=== PATIENT | male | born 1980 | race Caucasian/White ===

== ENCOUNTER 2017-05-09 23:04 | Inpatient (IN) | payer OTHER ==
[~2017-05-09] VITALS: Ht 182.9 cm; Wt 74.0 kg
[2017-05-10 00:55] LABS: MEAN CORPUSCULAR HEMOGLOBIN 34.7 pg (27.0-33.0); MEAN CORPUSCULAR HGB CONC 35.4 g/dl (32.0-36.5); MEAN CORPUSCULAR VOLUME 97.9 fl (80.0-96.0); PLATELET COUNT, AUTOMATED 167 10^3/uL (150-450); RED CELL DISTRIBUTION WIDTH 14.2 % (11.5-14.5); WHITE BLOOD COUNT 5.2 10^3/uL (4.0-10.0)
[2017-05-10] MEDS ORDERED: NICOTINE 21MG/24HR 1 EA TRANSDERMAL TD ONE ×2 (01:15→16:15)
[2017-05-10 01:16] LABS: METHADONE URINE NEGATIVE (NEGATIVE)
[2017-05-10 01:25] LABS: ALBUMIN 3.7 GM/DL (3.2-5.2); ALBUMIN/GLOBULIN RATIO 0.97 (1.00-1.93); ALKALINE PHOSPHATASE 115 U/L (45-117); ALT/SGPT 104 U/L (12-78); ANION GAP 9 MEQ/L (8-16); AST/SGOT 136 U/L (15-37); BILIRUBIN,DIRECT 0.2 MG/DL (0.0-0.2); BILIRUBIN,TOTAL 0.4 MG/DL (0.2-1.0); BLOOD UREA NITROGEN 9 MG/DL (7-18); CALCIUM LEVEL 8.4 MG/DL (8.5-10.1); CARBON DIOXIDE LEVEL 28 MEQ/L (21-32); CHLORIDE LEVEL 100 MEQ/L (98-107); CREATININE FOR GFR 0.76 MG/DL (0.70-1.30); GLOMERULAR FILTRATION RATE > 60.0 (>60); GLUCOSE, FASTING 120 MG/DL (70-105); POTASSIUM SERUM 3.9 MEQ/L (3.5-5.1); SODIUM LEVEL 137 MEQ/L (136-145); TOTAL PROTEIN 7.5 GM/DL (6.4-8.2)
[2017-05-10] MEDS ORDERED: OXAZEPAM 15 MG CAP PO ONE ×2 (06:00→13:15)
[2017-05-10] MEDS ORDERED: LORazepam 1 MG TAB PO STA (16:10)
[2017-05-10 16:50] VITALS: BP 132/92
[2017-05-10] MEDS ORDERED: MOM 30ML SUSPENSION UDC PO PRN (18:15)
[2017-05-10] MEDS ORDERED: MAALOX 30 ML SUSP *UDC PO PRN (18:15)
[2017-05-10] MEDS ORDERED: OXAZEPAM 15 MG CAP PO PRN (18:15)
[2017-05-10] MEDS: OXAZEPAM 15 MG CAP PO SCH (20:39)
[2017-05-11] VITALS (7 sets, daily range): BP systolic 125–160; BP diastolic 75–100
[2017-05-11] MEDS: OXAZEPAM 15 MG CAP PO SCH ×3 (08:00→21:20)
[2017-05-11] MEDS: NICOTINE 21MG/24HR 1 EA TRANSDERMAL TD SCH (08:00)
--- NOTE | 2017-05-11 09:34 | HPEPDOC ---
[facility] Medical History & Physical Date of Admission May 10, 2017 History and Physical PCP: None ATTENDING: Dr. Gee Corcoran HPI: 36yoM admitted to [facility] for unspecified depressive disorder, being medically examined today. No acute medical complaints today. Denies any fevers, chills, weakness, fatigue, MASON, CP, SOB, cough, palpitations, abdominal pain, N/V /D or changes in bowel or bladder habits. PMHx: Alcohol use Depression History of SI PSHX: Tympanostomy tubes SOCHX: Resides in: [place] Marital Status: Kids: 3 Employment: Unemployed Tobacco use: Half packs per day ETOH: Daily beer and vodka usually drinks from 9 AM to midnight per patient. Illicit Drugs: Denies IV Drug Use: Denies Tattoos done unprofessionally: Denies FAMHX: Mother: Alive, history of leukemia Father: Alive, prostate cancer Siblings: 2 Alive, well Children: Alive, well Unexpected deaths due to medical reasons: None. ROS: As noted in HPI, otherwise 11pt ROS of systems reviewed and remarkable that he feels shaky. Denies nausea, vomiting, abdominal pain. PE: GEN: 36yoM, appears stated age. Well-nourished, well developed. No acute distress. Alert and oriented x 3. Appears anxious during exam. HEENT: Normocephalic, atraumatic. Pupils are equal, round, and reactive to light. Extraocular movements are intact. No nystagmus appreciated. Sclera are nonicteric. Conjunctiva without injection. Nose midline. Nasal turbinates without bogginess. EACs both patent BL. TMs both visualized and dhillon with good cone of light, no bulging or erythema. No facial asymmetry. Moist mucous membranes. Dentition fair. Pharynx pink and moist, no cobblestoning. Neck supple , trachea midline. No lymphadenopathy or thyromegaly appreciated. CHEST: Regular rate and rhythm, +S1, +S2 LUNGS: Clear to auscultation bilaterally. No wheezes, rales, or rhonchi. Breathing appears symmetric and easy. Patient is speaking in full sentences. No accessory muscle use. ABD: Round, soft, non-tender, non-distended. +Bowel sounds throughout. No rebound or guarding. No costovertebral angle tenderness. EXT: Pulses 2+ bilaterally dorsalis pedis and radial. No lower extremity edema appreciated. SKIN: [place], dry, warm. Capillary refill <2sec. No rashes. NEURO: Alert and oriented x 3. Cranial nerves III-XII are intact. No focal deficits appreciated. EKG: pending. A&P: 36yoM admitted to [facility] for unspecified depressive disorder 1. Psych. Plan per Psychiatry. Obtain baseline EKG to assure the safety of psychiatric medications as they can prolong the QT interval. 2. Nicotine dependence. Patch available. 3. Elevated LFTs. Check hepatitis profile. Recheck CMP in a.m. Consider right upper quadrant ultrasound. 4. Follow up. No Primary Care Provider. Will attempt to establish PCP on discharge. 5. Substance use. Withdrawal per psychiatry. Recommend MVI, Thiamine, and Folic Acid supplementation. Patient is currently receiving scheduled and when necessary Serax as per psychiatry. 6. Staff member Feliz present throughout exam. Vital Signs Vital Signs Date Time Temp Pulse Resp B/P (MAP) Pulse Ox O2 Delivery O2 Flow Rate FiO2 05/11/17 06:50 98.3 94 18 126/88 (101) 05/10/17 16:23 99 05/10/17 07:50 Room Air Laboratory Data Labs 24H Item Value Date Time Sodium Level 137 MEQ/L 05/10/175 Potassium Level 3.9 MEQ/L 05/10/1744 Chloride Level 100 MEQ/L 05/10/1744 Carbon Dioxide Level 28 MEQ/L 05/10/1744 Anion Gap 9 MEQ/L 05/10/1744 Blood Urea Nitrogen 9 MG/DL 05/10/17 0045 Creatinine 0.76 MG/DL 05/10/17 004 Glomerular Filtration Rate > 60.0 05/10/17 004 Fasting Glucose 120 MG/DL H 05/10/17 0045 Calcium Level 8.4 MG/DL L 05/10/1744 Total Bilirubin 0.4 MG/DL 05/10/175 Direct Bilirubin 0.2 MG/DL 05/10/17 004 Aspartate Amino Transf (AST/SGOT) 136 U/L H 05/10/17 0045 Alanine Aminotransferase (ALT/SGPT) 104 U/L H 05/10/17 004 Alkaline Phosphatase 115 U/L 05/10/1744 Total Protein 7.5 GM/DL 1044 Albumin 3.7 GM/DL 05/10/1744 Albumin/Globulin Ratio 0.97 L 05/10/1744 Thyroid Stimulating Hormone (TSH) 1.900 uIU/ML 05/10/1744 White Blood Count 5.2 10^3/uL 05/10/1744 Red Blood Count 4.38 10^6/uL 05/10/1744 Hemoglobin 15.2 g/dl 05/10/1744 Hematocrit 42.9 % 05/10/1744 Mean Corpuscular Volume 97.9 fl H 05/10/1744 Mean Corpuscular Hemoglobin 34.7 pg H 05/10/1744 Mean Corpuscular Hemoglobin Concent 35.4 g/dl 05/10/1744 Red Cell Distribution Width 14.2 % 05/10/1744 Platelet Count 167 10^3/uL 05/10/1744 Nucleated Red Blood Cells % (auto) 0.0 % 05/10/1744 Salicylates Level 5.1 MG/DL 05/10/1744 Urine Opiates Screen NEGATIVE 05/10/1740 Urine Methadone Screen NEGATIVE 05/10/1740 Acetaminophen Level < 2.0 UG/ML L 05/10/1744 Urine Barbiturates Screen NEGATIVE 05/10/1740 Urine Phencyclidine Screen NEGATIVE 05/10/1740 Urine Amphetamines Screen NEGATIVE 05/10/1740 Urine Benzodiazepines Screen NEGATIVE 05/10/1740 Urine Cocaine Metabolite Screen NEGATIVE 05/10/1740 Urine Cannabinoids Screen NEGATIVE 05/10/1740 Ethyl Alcohol Level 0.293 % H 05/10/1744 Home Medications No Active Prescriptions or Reported Meds Allergies Coded Allergies: Penicillins (Verified Allergy, Intermediate, swelling, 05/09/17) Patricia Dey May 11, 2017 09:34
[2017-05-11] MEDS: FOLIC ACID 1 MG TAB PO SCH (09:58)
[2017-05-11] MEDS: MULTIVITAMINS/MINERALS THERAP 1 TAB PO SCH (09:59)
[2017-05-11] MEDS: THIAMINE 100 MG TAB PO SCH (09:59)
[2017-05-11 13:42] LABS: ALBUMIN 4.1 GM/DL (3.2-5.2); ALKALINE PHOSPHATASE 126 U/L (45-117); ALT/SGPT 132 U/L (12-78); ANION GAP 8 MEQ/L (8-16); AST/SGOT 162 U/L (15-37); BLOOD UREA NITROGEN 7 MG/DL (7-18); CARBON DIOXIDE LEVEL 27 MEQ/L (21-32); CHLORIDE LEVEL 100 MEQ/L (98-107); CREATININE FOR GFR 0.73 MG/DL (0.70-1.30); GLOMERULAR FILTRATION RATE > 60.0 (>60); GLUCOSE, FASTING 110 MG/DL (70-105); POTASSIUM SERUM 4.5 MEQ/L (3.5-5.1); SODIUM LEVEL 135 MEQ/L (136-145); TOTAL PROTEIN 8.2 GM/DL (6.4-8.2)
--- NOTE | 2017-05-11 13:54 | MHHPEPDOC ---
[facility] History & Physical History and Physical DATE OF ADMISSION: May 10, 2017 at 15:20 LEGAL STATUS AT ADMISSION: 9.39. CHIEF COMPLAINT: "I need to stay sober". HISTORY OF PRESENT ILLNESS: Patient is a 36-year-old white male, without any PPH or PMH, who is in NAD. Says many things in his life have gone wrong recently and he has reacted poorly to these stressors. Says he started drinking heavily 11 years. Went to [employer], graduated with a certificate. Prior to this visit started drinking 4 months ago after girlfriend he loved broke up with him because he quit his job 5 months ago at after a hostile takeover [employer]. Says he has had trouble getting a new job since then. Was drinking increasing amounts of alcohol week by week, to the point of drinking 8 tallboy beers from morning until nighttime, without blacking out. Says his last drink was 4 days ago. Says he told his girlfriend "what do I have to live for". Says he was going through "DT's" for a couple days, felt hot cold trembling. Denies wanting to hurt himself at this time. His ex-girlfriend called the police and he was brought to the [facility] ED on 05/09/17. Says he's not depressed or anxious that he fell off the wagon, because he feels he can go to [employer] and graduate again no problem. Says mother was diagnosed with leukemia 8 months ago. Says he has 3 kids (2 girls, 13 and 11), 1 boy 6 years old. He says he shares custody of his kids with his ex-girlfriend. Says he found out she was cheating and moved in with his current girlfriend. His current girlfriend apparently was yelling at one of the daughters an his ex-girlfriend didn't appreciate it, around the same time he found out his mom had leukemia so he moved in with his mom. Says his appetite and energy are good. Says his hobbies are cooking, drawing and video games. Says father of prostate cancer 8-9 years ago. Says his father wanted to in the house, patient had to carry father to hospital because he refused to go PSYCHIATRIC REVIEW OF SYSTEMS: Affective: Denies depression, likely minimizing his symptoms Anxiety: Mild anxiety, misses kids being here in the hospital. Trauma: Denies any form of trauma. Psychosis: Denies any AH or VH, despite his alcohol withdrawal. Personality: Cluster C traits: Dependant personality disorder PAST PSYCHIATRIC HISTORY: Prior Psychiatric Disorder: Denies Outpatient Treatment: Denies Suicidal/Self injurious: Denies Psychotropic Medication History: Oxazepam, Zoloft, Zyprexa ALLERGIES: Please see below. FAMILY PSYCHIATRIC HISTORY: Denies SOCIAL HISTORY: Early Relations/development: Says he's a mistake, because his brothers are 12 and 15 years older. He grew up in [place] with a loving family. They were never . His father when he was 51. Says he broke into the [employer] grounds and rode the [employer] when he was 13, otherwise uneventful childhood. Denies any abuse. Sibling order: youngest, 2 older brothers, got along well with them. Paternal relationships: Said he got along well with father. Education: grade 12, then trade school, college at [employer]). 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 Legal: none Marital: Single Economic: Says he's on food stamps. Supports: Says he has moved in with mother. Abuse/trauma: Denies SUBSTANCE ABUSE HISTORY: Alcohol use, smokes 1.5 PPD PAST MEDICAL/SURGICAL HISTORY: Denies VITAL SIGNS: Please see below. MENTAL STATUS EXAMINATION: General appearance: Patient is a 36-year old white male unkempt in hospital clothing, who is mildly anxious, shaking, normal eye-contact Speech: normal in rate, rhythm, volume Thought processes: linear,logical Thought content: Denies SI, HI, AVH, paranoia, delusions Abstract reasoning and computation: Good Description of associations: Good Description of abnormal or psychotic thoughts: None Judgment: poor Insight: poor Orientation: A/O x 3 Recent and remote memory: Good Attention span and concentration: Good Fund of knowledge: Average Mood: "anxious and bored" Affect: mildly anxious, DIAGNOSES: 1. Unspecified depressive disorder 2. Adjustment disorder 3. Alcohol use disorder. 4. Dependant personality disorder ASSESSMENT: Says he was supposed to go to [email or web address] the day before admission. Says he wants to go there and get himself together. He appears to have regression as , he isolates himself at home and plays videogames and draws. He depends on his partner for care and has been using alcohol heavily lately. He appears anxious and has been withdrawing from heavy alcohol use. Further workup is required to assess the patient, as he is likely minimizing his mood symptoms. PROBLEM LIST: 1. Depression 2. Anxiety 3. Suicidal behavior 4. Ethanol abuse INITIAL TREATMENT PLAN: 1. Patient was admitted on a . 2. Complete history was obtained. 3. With patients permission, family will be contacted and database will be expanded. 4. Patients medication regimen will be reviewed and changed accordingly. 5. Patient will be provided with protected environment. 6. Patient will be treated with individual, group, and milieu therapies. 7. Patient will receive supportive psych-education. 8. Discharge planning will commence immediately. 9. Outpatient follow-up treatment will be strongly recommended. 10. The initial treatment plan will focus initially on: * Depression. * Risk for suicide. * Substance abuse. ESTIMATED LENGTH OF STAY: 2-10 DAYS. TIME SPENT COUNSELING AND COORDINATING INITIAL CARE: 60 minutes. Vital Signs Vital Signs Date Time Temp Pulse Resp B/P (MAP) Pulse Ox O2 Delivery O2 Flow Rate FiO2 05/11/17 11:31 100 160/98 (118) 05/11/17 06:50 98.3 18 05/10/17 16:23 99 05/10/17 07:50 Room Air Laboratory Data 24H Labs Laboratory Tests 2 05/11/17 12:43: Medications No Active Prescriptions or Reported Meds Allergies Coded Allergies: Penicillins (Verified Allergy, Intermediate, swelling, 05/09/17) BELGICA CAMPO PGY-1 May 11, 2017 13:54
[2017-05-11 14:17] LABS: CALCIUM LEVEL 10.1 MG/DL (8.5-10.1)
--- NOTE | 2017-05-11 17:36 | ECGEPIP ---
Stationary ECG Study [facility] Test Date: 2017-05-11 Pat Name: DIANDRA CARREON Department: Room: [place] [address] Gender: M Site Medical Director: COLBY : 1980 Requested By: Patricia Dey Order Number: [id number] Reading MD: Seymour Mason Measurements Intervals [place] Rate: 91 P: 32 WY: 121 QRS: 35 QRSD: 80 T: 48 QT: 344 QTc: 424 Interpretive Statements Normal sinus rhythm/sinus arrhythmia Isolated PVC Not outside normal limits. Electronically Signed On 05-11-2017 17:36:09 EDT by Seymour Mason
[2017-05-11] MEDS: traZODone 50 MG TAB PO PRN (21:19)
[2017-05-12 06:50] VITALS: BP 131/81
[2017-05-12 08:35] LABS: ALBUMIN/GLOBULIN RATIO 1.05 (1.00-1.93); ALKALINE PHOSPHATASE 127 U/L (45-117); ALT/SGPT 164 U/L (12-78); ANION GAP 8 MEQ/L (8-16); AST/SGOT 171 U/L (15-37); BLOOD UREA NITROGEN 8 MG/DL (7-18); CALCIUM LEVEL 9.9 MG/DL (8.5-10.1); CARBON DIOXIDE LEVEL 28 MEQ/L (21-32); CHLORIDE LEVEL 103 MEQ/L (98-107); CREATININE FOR GFR 1.02 MG/DL (0.70-1.30); GLOMERULAR FILTRATION RATE > 60.0 (>60); GLUCOSE, FASTING 101 MG/DL (70-105); POTASSIUM SERUM 4.4 MEQ/L (3.5-5.1); SODIUM LEVEL 139 MEQ/L (136-145); TOTAL PROTEIN 7.8 GM/DL (6.4-8.2)
[2017-05-12] MEDS: SERTRALINE HCL 50 MG TAB PO SCH (09:00)
[2017-05-12] MEDS: OXAZEPAM 15 MG CAP PO SCH ×4 (09:28→21:43)
[2017-05-12] MEDS: MULTIVITAMINS/MINERALS THERAP 1 TAB PO SCH (09:28)
[2017-05-12] MEDS: THIAMINE 100 MG TAB PO SCH (09:28)
[2017-05-12] MEDS: NICOTINE 21MG/24HR 1 EA TRANSDERMAL TD SCH (09:28)
[2017-05-12] MEDS: FOLIC ACID 1 MG TAB PO SCH (09:28)
[2017-05-12 18:00] VITALS: BP 134/89
--- NOTE | 2017-05-12 20:57 | MHIPNPDOC ---
[facility] Progress Note Progress Note DATE OF SERVICE: 05/12/17 HISTORY OF PRESENT ILLNESS: Patient is a 36-year-old white male, without any PPH or PMH, who is in NAD. Says many things in his life have gone wrong recently and he has reacted poorly to these stressors. Says he started drinking heavily 11 years. Went to [employer], graduated with a certificate. Prior to this visit started drinking 4 months ago after girlfriend he loved broke up with him because he quit his job 5 months ago at after a hostile takeover [employer]. Says he has had trouble getting a new job since then. Was drinking increasing amounts of alcohol week by week, to the point of drinking 8 tallboy beers from morning until nighttime, without blacking out. Says his last drink was 4 days ago. Says he told his girlfriend "what do I have to live for". Says he was going through "DT's" for a couple days, felt hot cold trembling. Denies wanting to hurt himself at this time. His ex-girlfriend called the police and he was brought to the [facility] ED on 05/09/17. Says he's not depressed or anxious that he fell off the wagon, because he feels he can go to [employer] and graduate again no problem. Says mother was diagnosed with leukemia 8 months ago. Says he has 3 kids (2 girls, 13 and 11), 1 boy 6 years old. He says he shares custody of his kids with his ex-girlfriend. Says he found out she was cheating and moved in with his current girlfriend. His current girlfriend apparently was yelling at one of the daughters an his ex-girlfriend didn't appreciate it, around the same time he found out his mom had leukemia so he moved in with his mom. Says his appetite and energy are good. Says his hobbies are cooking, drawing and video games. Says father of prostate cancer 8-9 years ago. Says his father wanted to in the house, patient had to carry father to hospital because he refused to go. Interval History 05/12/17: Says he's angry because he can't show up to is daughter's assembly as he usually does. Says he's different than the other patients on the todd, who need more help than him. He says he wants to leave, and gets argumentative when told he is shaking and can still be in alcohol withdrawal. When asked what his plans are when leaves he says he will have no problem returning to [place] and getting well. He says he will continue to get support from bilingual social worker, but does not mention career plans. He denies any depression, anxiety, AVH, paranoia, SI or plan. VITAL SIGNS: See below. NEW TEST RESULTS: See below AST 171, ALT 164, alkphos 127 CURRENT MEDICATIONS: See below. MENTAL STATUS EXAMINATION: General appearance: Patient is a 36-year old white male unkempt in hospital clothing, who is very anxious, shaking, normal eye-contact Speech: normal in rate, rhythm, volume Thought processes: linear,logical Thought content: Denies SI, HI, AVH, paranoia, delusions Abstract reasoning and computation: Good Description of associations: Good Description of abnormal or psychotic thoughts: None Judgment: poor Insight: poor Orientation: A/O x 3 Recent and remote memory: Good Attention span and concentration: Good Fund of knowledge: Average Mood: "angry" Affect: anxious, agitated, irritable, mood-congruent, inappropriate DIAGNOSES: 1. Unspecified depressive disorder. 2. Adjustment disorder 2. Alcohol use disorder 3. Dependant personality disorder ASSESSMENT: Patient is acting out. He is irritable, very anxious, agitated. He says he's very frustrated being in the [facility]. His insight and judgement are poor as he says his alcohol use wont be a problem for him after leaving the unit. He does not seem to understand the gravity of his situation, with regards to the care of his children and how his drinking affects the family. He is minimizing his symptoms, as he appears very anxious and has been demonstrating signs of regression, living at home with his mom, drinking and playing videogames. He was counselled with regards to his heavy cigarette smoking (1.5 PPD) and drinking. Patient agreed to take Zoloft for depression. His liver enzymes remain elevated, will continue to monitor. MANAGEMENT PLAN: Started Zoloft 50 mg PO daily. Continue alcohol withdrawal protocol and monitor for seizures, arrhythmias and anxiety. Continue to monitor for safety and medication side effects including but not limited to; nausea, vomiting, constipation, diarrhea, serotonin syndrome. TIME SPENT: 20 minutes. Vital Signs Vital Signs Date Time Temp Pulse Resp B/P (MAP) Pulse Ox O2 Delivery O2 Flow Rate FiO2 05/12/17 18:00 98.1 100 18 134/89 (104) 05/12/17 06:50 Room Air 05/10/17 16:23 99 Laboratory Data 24H Labs Laboratory Tests 2 05/12/17 07:39: Anion Gap 8, Glomerular Filtration Rate > 60.0, Blood Urea Nitrogen 8, Creatinine 1.02, Sodium Level 139, Potassium Level 4.4, Chloride Level 103, Carbon Dioxide Level 28, Calcium Level 9.9, Aspartate Amino Transf (AST/SGOT) 171H, Alanine Aminotransferase (ALT/SGPT) 164H, Alkaline Phosphatase 127H, Total Bilirubin 1.0, Total Protein 7.8, Albumin 4.0, Albumin/Globulin Ratio 1.05 CBC/BMP Laboratory Tests 05/12/17 07:39 Calcium Level 9.9, Aspartate Amino Transf (AST/SGOT) 171 H, Alanine Aminotransferase (ALT/SGPT) 164 H, Alkaline Phosphatase 127 H, Total Bilirubin 1.0, Total Protein 7.8, Albumin 4.0 Current Medications Current Medications Al Hydrox/Mg Hydrox/Simethicone (Mylanta) 30 ml Q4HP PRN PO HEARTBURN/ INDIGESTION; Start 05/10/17 at 18:15; Stop 06/09/17 at 18:14 Folic Acid (Folic Acid) 1 mg DAILY PO Last administered on 05/12/17 09:28; Start 05/11/17 at 09:00; Stop 06/10/17 at 08:59 Home Med (Med Rec Complete!) ASDIRECTED XX ; Start 05/10/17 at 16:30; Stop at 16:30; Status DC Lorazepam (Ativan) 1 mg STAT STAT PO Last administered on 05/10/17 16:22; Start 05/10/17 at 16:10; Stop 05/10/17 at 16:11; Status DC Magnesium Hydroxide (Milk Of Magnesia) 30 ml DAILYPRN PRN PO CONSTIPATION; Start 05/10/17 at 18:15; Stop 06/09/17 at 18:14 Multivitamins (Theragram-M) 1 tab DAILY PO Last administered on 05/12/17 09: 28; Start 05/11/17 at 09:00; Stop 06/10/17 at 08:59 Nicotine (Nicoderm Cq 21mg) 1 patch DAILY TD Last administered on 05/12/17 09 :28; Start 05/11/17 at 09:00; Stop 06/10/17 at 08:59 Oxazepam (Serax) 30 mg Q4HP PRN PO SEE BELOW; Start 05/10/17 at 18:15; Stop 05/17/17 at 18:14 Oxazepam (Serax) 30 mg TID PO Last administered on 05/12/17 17:42; Start at 21:00; Stop 05/17/17 at 20:59 Sertraline HCl (Zoloft) 50 mg DAILY PO ; Start 05/12/17 at 09:00; Stop at 08:59 Thiamine HCl (Thiamine HCl) 100 mg DAILY PO Last administered on 05/12/17 09: 28; Start 05/11/17 at 09:00; Stop 06/10/17 at 08:59 Trazodone HCl (Desyrel) 50 mg QHSP PRN PO INSOMNIA Last administered on 21:19; Start 05/10/17 at 18:15; Stop 06/09/17 at 18:14 Allergies Coded Allergies: Penicillins (Verified Allergy, Intermediate, swelling, 05/09/17) BELGICA CAMPO PGY-1 May 12, 2017 20:57
[2017-05-12] MEDS: traZODone 50 MG TAB PO PRN (22:46)
[2017-05-13 06:58] VITALS: BP 128/87
[2017-05-13 07:03] LABS: ALBUMIN 3.7 GM/DL (3.2-5.2); ALBUMIN/GLOBULIN RATIO 1.03 (1.00-1.93); ALKALINE PHOSPHATASE 116 U/L (45-117); ALT/SGPT 199 U/L (12-78); ANION GAP 9 MEQ/L (8-16); AST/SGOT 186 U/L (7-37); BILIRUBIN,TOTAL 0.9 MG/DL (0.2-1.0); BLOOD UREA NITROGEN 9 MG/DL (7-18); CALCIUM LEVEL 9.8 MG/DL (8.5-10.1); CARBON DIOXIDE LEVEL 26 MEQ/L (21-32); CHLORIDE LEVEL 105 MEQ/L (98-107); CREATININE FOR GFR 0.85 MG/DL (0.70-1.30); GLOMERULAR FILTRATION RATE > 60.0 (>60); GLUCOSE, FASTING 82 MG/DL (70-105); POTASSIUM SERUM 3.7 MEQ/L (3.5-5.1); SODIUM LEVEL 140 MEQ/L (136-145); TOTAL PROTEIN 7.3 GM/DL (6.4-8.2)
[2017-05-13 08:00] VITALS: BP 128/87
[2017-05-13] MEDS: NICOTINE 21MG/24HR 1 EA TRANSDERMAL TD SCH (08:36)
[2017-05-13] MEDS: OXAZEPAM 15 MG CAP PO SCH ×3 (08:36→21:07)
[2017-05-13] MEDS: SERTRALINE HCL 50 MG TAB PO SCH (08:38)
[2017-05-13] MEDS: FOLIC ACID 1 MG TAB PO SCH (08:38)
[2017-05-13] MEDS: THIAMINE 100 MG TAB PO SCH (08:38)
[2017-05-13] MEDS: MULTIVITAMINS/MINERALS THERAP 1 TAB PO SCH (08:38)
--- NOTE | 2017-05-13 08:40 | REP ---
Right upper quadrant sonography: History: Abnormal liver function studies. Findings: Scanning through the right upper quadrant of the abdomen demonstrates a normal sized thin-walled gallbladder without evidence of stone or polyp. Common bile duct is normal measuring 0.4 cm in greatest diameter. There is evidence of fatty infiltration of the liver. No focal liver lesion is seen. Limited views of the pancreas show no abnormality. The body and tail are obscured by abdominal bowel gas. There is no evidence of ascites or right renal abnormality. The right kidney measures 11.9 x 4.0 x 5.7 cm. Impression: Evidence of fatty infiltration of the liver. Otherwise unremarkable right upper quadrant sonography.. Signed by Andrew Carranza MD 05/13/2017 08:31 A
[2017-05-13] MEDS ORDERED: chlordiazePOXIDE 25 MG CAP PO PRN (15:45)
[2017-05-13 18:00] VITALS: BP 122/84
[2017-05-13 21:10] VITALS: BP 140/85
[2017-05-13] MEDS: traZODone 50 MG TAB PO PRN (23:05)
[2017-05-14 06:00] VITALS: BP 125/70
[2017-05-14 08:00] VITALS: BP 125/70
[2017-05-14] MEDS: OXAZEPAM 15 MG CAP PO SCH ×2 (08:59→15:20)
[2017-05-14] MEDS: NICOTINE 21MG/24HR 1 EA TRANSDERMAL TD SCH (08:59)
[2017-05-14] MEDS: FOLIC ACID 1 MG TAB PO SCH (08:59)
[2017-05-14] MEDS: THIAMINE 100 MG TAB PO SCH (08:59)
[2017-05-14] MEDS: SERTRALINE HCL 50 MG TAB PO SCH (08:59)
[2017-05-14] MEDS: MULTIVITAMINS/MINERALS THERAP 1 TAB PO SCH (08:59)
--- NOTE | 2017-05-14 14:32 | MHIPN ---
DATE OF SERVICE: 05/13/2017 HISTORY: 36-year-old male admitted to our unit for depression, suicidal ideation and alcohol dependency. MEDICATIONS: - Zoloft 50 mg by mouth every morning - oxazepam 30 mg by mouth three times a day - trazodone 50 mg by mouth at bedtime as needed for insomnia SUBJECTIVE: "I feel a little better". OBJECTIVE: The patient has been refusing to take the Zoloft. He states that he does not like to take medication and he would like to use only psychosocial measures. I encouraged the patient to discuss this issue with the primary psychiatrist. During the interview, there is no evidence of alcohol withdrawal. The patient has little insight. MENTAL STATUS EXAMINATION: The patient is dressed in [facility]. The patient is cooperative, has fair eye contact. Speech is normal in rate, volume, articulation and is coherent and spontaneous. Mood is depressed and anxious, but somewhat improved. Affect is congruent with mood. No delusions or hallucinations. Memory is fair. Patient is fully oriented. Associations are intact. Thinking is logical. Thought content is appropriate. Patient is able to contract for safety while in the hospital. Insight and judgment is poor. ASSESSMENT: 1. Depression. 2. Suicidal ideation. 3. Alcohol dependency. PLAN: 1. Discontinue oxazepam. 2. Start Librium 25 mg by mouth twice a day as needed alcohol withdrawal. 3. Continue with trazodone as needed for insomnia. 4. Patient is to discuss the treatment with Zoloft. 5. Continue medication management, individual and group therapy.
[2017-05-14 18:00] VITALS: BP 135/88
[2017-05-14 22:10] VITALS: BP 138/80
[2017-05-14] MEDS: traZODone 50 MG TAB PO PRN (22:10)
[2017-05-15 06:58] VITALS: BP 118/66
[2017-05-15] MEDS: SERTRALINE HCL 50 MG TAB PO SCH (08:26)
[2017-05-15] MEDS: NICOTINE 21MG/24HR 1 EA TRANSDERMAL TD SCH (08:26)
--- NOTE | 2017-05-15 09:41 | MHDSPDOC ---
[facility] Discharge Summary Discharge Summary DATE OF ADMISSION: May 10, 2017 at 15:20 DATE OF DISCHARGE: 05/15/17 DISCHARGE DIAGNOSES: 1. Unspecified Depressive disorder 2. Alcohol use Disorder 3. Adjustment Disorder 4. Dependent Personality Disorder REASON FOR ADMISSION:Patient is a 36-year-old white male, without any PPH or PMH , who is in NAD. Says many things in his life have gone wrong recently and he has reacted poorly to these stressors. Says he started drinking heavily 11 years. Went to [employer], graduated with a certificate. Prior to this visit started drinking 4 months ago after girlfriend he loved broke up with him because he quit his job 5 months ago at after a hostile takeover [employer]. Says he has had trouble getting a new job since then. Was drinking increasing amounts of alcohol week by week, to the point of drinking 8 tallboy beers from morning until nighttime, without blacking out. Says his last drink was 4 days ago. Says he told his girlfriend "what do I have to live for". Says he was going through "DT's" for a couple days, felt hot cold trembling. Denies wanting to hurt himself at this time. His ex-girlfriend called the police and he was brought to the [facility] ED on 05/09/17. Says he's not depressed or anxious that he fell off the wagon, because he feels he can go to [employer] and graduate again no problem. Says mother was diagnosed with leukemia 8 months ago. Says he has 3 kids (2 girls, 13 and 11), 1 boy 6 years old. He says he shares custody of his kids with his ex -girlfriend. Says he found out she was cheating and moved in with his current girlfriend. His current girlfriend apparently was yelling at one of the daughters an his ex-girlfriend didn't appreciate it, around the same time he found out his mom had leukemia so he moved in with his mom. Says his appetite and energy are good. Says his hobbies are cooking, drawing and video games. CONSULTANTS INVOLVED: none TREATMENT AND PROGRESS ON THE UNIT : Patient brought to the [facility] Emergency Department 05/09/17, medically cleared and was started on a CIWA protocol for alcohol withdrawal 05/10/17. Received Oxazepam 30 mg orally three times daily and a dose of 1 mg of Lorazepam. Liver profile was also done and showed elevation of liver enzymes, AST 136, ALT 104. His had a blood alcohol level on toxicology screen of 0.293. He was also started on 50 mg Trazodone at night for insomnia. 05/10/17 was admitted to the [facility] Inpatient Mental Health Unit. On initial interview, 05/11/17 was very nervous and shaky. Was counselled regarding tobacco and alcohol use. EKG showed QTc of 424. Was continued on Thiamine 100 mg daily, Folic acid 1 mg daily, daily multivitamin and CIWA protocol with Oxazepam 30 mg orally three times daily. 05/13/17 A liver ultrasound conducted showing fatty infiltration, otherwise normal. Was followed by [facility] for medical conditions. 05/12/17 was started on Sertraline 50 mg orally daily for anxiety and depression. 05/13/17 Oxazepam 30 mg three times daily was switched to Chlordiazepoxide 25 mg orally twice a day. During his stay was scheduled for including but not limited to daily sleep evaluations, individual/group therapy, suicide risk assessment, vital signs, pain and fall risk assessments. Prior to discharge he denied suicidal ideations or plan and any common or rare side effects of his medications. HOSPITAL COURSE: See above DISCHARGE ASSESSMENT: The patient came in to the inpatient mental health unit with alcohol withdrawal. He was anxious and agitated. After receiving medical treatment for his alcohol withdrawal, therapy and treatment for his mood symptoms and anxiety he improved significantly. He continues to be mildly anxious, but says his mood symptoms are controlled and he is ready to receive outpatient treatment. He denies suicidal ideations or plan. He also denies common or rare side effects of his medications. He denies homicidal ideation, auditory/visual hallucinations and other distortions of perception. MENTAL STATUS EXAMINATION: General appearance: Patient is a 36-year old white male in hospital clothing, mildly anxious, normal eye-contact Speech: normal in rate, rhythm, volume Thought processes: linear,logical Thought content: Denies SI, HI, AVH, paranoia, delusions Abstract reasoning and computation: Intact Description of associations: Intact Description of abnormal or psychotic thoughts: None Judgment: Improving Insight: Improving Orientation: A/O x 3 Recent and remote memory: Intact Attention span and concentration: Intact Fund of knowledge: Average Mood: "fine" Affect: mild anxiety, full in range, inappropriate MEDICATIONS ON DISCHARGE: - Sertraline HCL 50 mg orally daily for Depression - Trazodone 50 mg orally for Insomnia - Nicotine patch 21mg/24 hours for nicotine Withdrawal PLAN/FOLLOWUP ARRANGEMENTS: [facility] [employer] [facility] for addictions, [facility] The amount of time spent in the coordination of care for this patient was approximately 30 minutes. Vital Signs/I&Os Vital Signs Date Time Temp Pulse Resp B/P (MAP) Pulse Ox O2 Delivery O2 Flow Rate FiO2 05/15/17 06:58 98.4 75 16 118/66 (83) 05/13/17 06:58 Room Air 05/10/17 16:23 99 Medications Scheduled Nicotine (Nicotine Transdermal Syst) 21 Mg/24 Hr Dis, 1 PATCH TD DAILY for NICOTINE WITHDRAWAL, #7 Put on 1 patch in morning, take off patch before bed. Sertraline Hcl (Sertraline HCl) 50 Mg Tab, 50 MG PO DAILY for depression, #7 Take 1 tablet daily. Scheduled PRN Trazodone HCl (Trazodone HCl) 50 Mg Tab, 50 MG PO QHSP PRN for INSOMNIA, #7 Take 1 tablet before bedtime as needed for insomnia. Allergies Coded Allergies: Penicillins (Verified Allergy, Intermediate, swelling, 05/09/17) BELGICA CAMPO PGY-1 May 15, 2017 09:40
[2017-05-15] MEDS ORDERED: SERT50TA PO (09:46)
[2017-05-15] MEDS ORDERED: TRAZO50TA PO (09:46)
[2017-05-15] MEDS ORDERED: NICO21PAT TD (09:46)
[2017-05-15 12:11] VITALS: BP 140/86
--- NOTE | 2017-05-15 20:41 | MHIPN ---
DATE: 05/14/2017 36-year-old male admitted for depression, suicidal ideation, and alcohol dependency. MEDICATIONS: - Zoloft 50 mg by mouth every morning, that patient is not taking - Librium 25 mg by mouth twice a day as needed for alcohol withdrawal - trazodone as needed for insomnia SUBJECTIVE: "I feel great." OBJECTIVE: Patient is focused on discharge, may be minimizing the symptoms in order to be discharged earlier. Patient is refusing to take Zoloft. I encouraged to discuss this issue with the primary psychiatrist. There is no evidence of alcohol withdrawal. No evidence of auditory or visual hallucinations or delusions. MENTAL STATUS EXAMINATION: Patient is dressed in hospital [facility], cooperative, fair eye contact. Speech is normal in rate, volume, and articulation, is coherent and is spontaneous. Mood is depressed and anxious, but improving. Affect is congruent with mood. No delusions or hallucinations. Memory, attention, and concentration are fair. Patient can contract for safety while in the hospital. Insight and judgment is limited. ASSESSMENT: 1. Depression. 2. Suicidal ideation. 3. Alcohol dependency. PLAN: 1. Patient is to discuss the treatment with sertraline with his primary psychiatrist. 2. Continue Librium 25 mg twice a day as needed. 3. Continue trazodone as needed for insomnia. 4. Continue medication management, individual and group therapy.
== END 2017-05-15 13:45 | disposition home or self-care (01) | DRG 754 ==
LOC: M ED 23:04 → M ED INP 05-10 15:20 → M PSY 05-10 16:45
PROVIDERS: ADMIT Psychiatry & Neurology Psychiatry; ATTEND Psychiatry & Neurology Psychiatry
DX: F32.9 Major depressive disorder, single episode, unspecified (principal); F60.7 Dependent personality disorder; F10.20 Alcohol dependence, uncomplicated; F43.20 Adjustment disorder, unspecified; F17.210 Nicotine dependence, cigarettes, uncomplicated; Z88.0 Allergy status to penicillin